=== PATIENT | female | born 1975 | race Caucasian/White ===

== ENCOUNTER 2019-09-07 02:20 | Emergency (ER) | payer SELFPAY ==
[~2019-09-07] VITALS: Ht 182.9 cm; Wt 117.9 kg
[~2019-09-07 02:20] MED LIST: ACETAMINOPHEN325 M1 PO; CYCLOBENZAPRINE10 MG PO; FLEXERIL10 MG PO; IBUPROFEN200 MG PO; MACROBID 100 M100 MG PO; NORCO 5-325 TA1 EACH PO; PENICILLIN V P500 MG PO; PERCOCET 5-3251 EACH PO
== END 2019-09-07 03:04 | disposition home or self-care (01) ==
LOC: ED 02:20
DX: J98.9 Respiratory disorder, unspecified (principal); I10 Essential (primary) hypertension; F17.200 Nicotine dependence, unspecified, uncomplicated
CPT/HCPCS: 99283

== ENCOUNTER 2022-04-02 21:07 | Emergency (ER) | payer SELFPAY ==
[~2022-04-02] VITALS: Ht 182.9 cm; Wt 117.9 kg
[2022-04-03] MEDS ORDERED: INDOMETHACIN50 MG PO (06:59)
[2022-04-03] MEDS ORDERED: COLCHICINE0.6 M1 PO (06:59)
--- NOTE | 2022-04-03 13:11 | EKG ---
[facility] [address] [facility] [place] [address] Signed Normal sinus rhythm Prolonged QT Abnormal ECG When compared with ECG of 02-APR-2022 21:34, (Unconfirmed) No significant change was found Confirmed by SHADIA ROLDAN MD ([id number]) on 04/03/2022 1:11:26 PM Electronically Signed By: SHADIA ROLDAN MD 04/03/22 1311 PATIENT NAME: SONIADEYANIRA Electrocardiogram DATE OF : 77 PHYSICIAN: SHADIA ROLDAN MD REPORT #: [id number] REPORT IS CONFIDENTIAL AND NOT TO BE RELEASED WITHOUT AUTHORIZATION
--- NOTE | 2022-04-03 13:11 | EKG ---
[facility] [address] [facility] [place] [address] Signed Normal sinus rhythm Prolonged QT Abnormal ECG No previous ECGs available Confirmed by SHADIA ROLDAN MD ([id number]) on 04/03/2022 1:11:22 PM Electronically Signed By: SHADIA ROLDAN MD 04/03/22 1311 PATIENT NAME: DEYANIRA SCOTT Electrocardiogram DATE OF : 77 PHYSICIAN: SHAIDA ROLDAN MD REPORT #: [id number] REPORT IS CONFIDENTIAL AND NOT TO BE RELEASED WITHOUT AUTHORIZATION
== END 2022-04-03 07:59 | disposition short-term general hospital (02) ==
LOC: ED 21:07
DX: I30.0 Acute nonspecific idiopathic pericarditis (principal); I10 Essential (primary) hypertension; F17.200 Nicotine dependence, unspecified, uncomplicated
CPT/HCPCS: 36415; 71045; 71250; 80053; 83735; 84484; 85025; 85379; 85610; 86140; 93005; 93010; 96365; 96366; 96368; 96375; 96376; 99285-25; C9803; J1644; J1885; U0003